=== PATIENT | female | born 1935 | race Caucasian/White ===

== ENCOUNTER 2022-09-14 05:04 | Emergency (ER) | payer MEDICAID ==
[~2022-09-14] VITALS: Ht 152.4 cm; Wt 69.0 kg
[2022-09-14 10:00] VITALS: BP 150/70
[2022-09-14] MEDS ORDERED: TOPUD MT (11:47)
== END 2022-09-14 11:58 | disposition home or self-care (01) ==
LOC: ER 05:04
DX: R55 Syncope and collapse (principal); R51.9 Headache, unspecified; I10 Essential (primary) hypertension
CPT/HCPCS: 71045; 72100; 99284